=== PATIENT | female | born 1955 | race Caucasian/White ===

== ENCOUNTER 2019-12-31 09:08 | Emergency (ER) | payer MEDICARE, SELFPAY ==
--- NOTE | 2019-12-31 09:16 | ED.GENADULT ---
HPI - General Adult General Chief complaint: Wound/Laceration Stated complaint: laceration Time Seen by Provider: 12/31/19 09:16 Source: patient Mode of arrival: ambulatory Limitations: no limitations History of Present Illness HPI narrative: 64-year-old female patient presents to the [facility] with complaints of a laceration to her left index finger that occurred yesterday. Patient states that she cut it on an old umbrella. Patient states that she knew that her tetanus was outdated so wanted to come today for tetanus shot. Patient denies any history of diabetes. Patient states that she cleaned it out really good yesterday and has been washing it with soap and water. Related Data Home Medications Medication Instructions Recorded Confirmed losartan 25 mg PO DAILY 12/31/19 12/31/19 metformin [Glucophage] 500 mg PO BID 12/31/19 12/31/19 propranolol 40 mg PO BID 12/31/19 12/31/19 simvastatin [Zocor] 10 mg PO DAILY 12/31/19 12/31/19 verapamil 100 mg PO DAILY 12/31/19 12/31/19 Allergies Allergy/AdvReac Type Severity Reaction Status Date / Time nickel Allergy Unknown Unknown Verified 04/29/19 09:34 Review of Systems Review of Systems: Narrative: CONSTITUTIONAL: Denies fever, chills, or sweats. EYES: Denies visual changes, redness, or discharge. ENT: Denies rhinorrhea, congestion, sore throat, or otalgia. CARDIOVASCULAR: Denies chest pain, palpitations, or edema. RESPIRATORY: Denies cough or dyspnea. GASTROINTESTINAL: Denies abdominal pain, nausea, vomiting, or diarrhea. GENITOURINARY: Denies dysuria or hematuria. SKIN: Denies rash or itching. Positive laceration to left index finger MUSCULOSKELETAL: Denies back pain, joint pain, or myalgia. NEUROLOGIC: Denies headache, numbness, or weakness. PSYCHIATRIC: Denies anxiety or depression. [facility] Past Medical History Medical History Diabetes HLD (hyperlipidemia) Hypercholesterolemia Hypertension Family History Family History Mother Hypertension Family history of Alzheimer's disease Social History Social History (Reviewed 12/31/19 @ 09:18 by BJ Ayers Smoking status: Former smoker Smoking end date: 06/03/04 Alcohol intake: never Gender identity (if verbalized by the patient): Female Comments At the time of my signature I agree with nursing past medical history, surgical, social, and family history. There is no relevant family history pertinent to the presenting complaint. Exam Narrative: Exam Narrative: GENERAL: Well-appearing, well-nourished, and in no acute distress. HEAD: Normocephalic, atraumatic. EYES: PERRLA and EOMI. ENT: Nares clear, no rhinorrhea or epistaxis. Mucous membranes moist. NECK: Supple. No lymphadenopathy CHEST: Clear to auscultation. No respiratory distress. HEART: Regular rate and rhythm. No murmur heard. Normal peripheral pulses. ABDOMEN: Soft, nontender, nondistended, normal active bowel sounds. EXTREMITIES: Normal range of motion. No edema. SKIN: Warm, dry, no rash. Patient has approximately 2.5 cm linear laceration between the PIP and MIP joint on the dorsal side of the left index finger. No active bleeding noted. The cut is pretty superficial. Patient has excellent range of motion and good sensation to the tip of the finger with good cap refill. NEURO: No focal deficits. Alert and oriented x3. Course Vital Signs Vital signs: Vital Signs Temperature 36.9 C 12/31/19 09:22 Pulse Rate 68 12/31/19 09:22 Respiratory Rate 18 12/31/19 09:22 Blood Pressure 142/65 H 12/31/19 09:22 Pulse Oximetry 99 12/31/19 09:22 Temperature 36.9 C 12/31/19 09:22 Pulse Rate 68 12/31/19 09:22 Respiratory Rate 18 12/31/19 09:22 Blood Pressure 142/65 H 12/31/19 09:22 Pulse Oximetry 99 12/31/19 09:22 Vital signs reviewed. The patient has been informed that they may have pre-hypertension or
[2019-12-31 09:22] VITALS: BP 142/65; PULSE 68; RESP 18; TEMP 36.9; O2SAT 99
[2019-12-31] MEDS: TETANUS,DIPHTHERIA,AC PERTUSSIS ADULT (0.5 ML) BOOSTRIX IM (09:39)
== END 2019-12-31 09:54 | disposition home or self-care (01) ==
PROVIDERS: Emergency Provider Nurse Practitioner Family; PCP Emergency Medicine
DX: S61.211A Laceration without foreign body of left index finger without damage to nail, initial encounter (principal); W26.8XXA Contact with other sharp object(s), not elsewhere classified, initial encounter; Z23 Encounter for immunization; Z87.891 Personal history of nicotine dependence; E11.9 Type 2 diabetes mellitus without complications; E78.5 Hyperlipidemia, unspecified; E78.00 Pure hypercholesterolemia, unspecified; I10 Essential (primary) hypertension
CPT/HCPCS: 90471; 90715; 99212; G0463

== ENCOUNTER → 2020-03-08 13:38 | Outpatient (CLI) | payer MEDICARE, SELFPAY ==
--- NOTE | ~2020-03-08 | XR_ITS ---
XR foot LT 2V DATE: 03/08/2020 13:47 INDICATION: Left foot pain TECHNIQUE: AP and lateral views COMPARISON: None FINDINGS: Slight plantar calcaneal enthesopathy. There is mild osteophyte is at the first metatarsophalangeal joint. No fracture, dislocation, periosteal reaction or bone destruction is detected. IMPRESSION: Slight plantar calcaneal enthesopathy Mild osteoarthritis at first metatarsophalangeal joint Reviewed, dictated and finalized at location A.
== END ==
PROVIDERS: PCP Emergency Medicine; Visit Provider Emergency Medicine
DX: M19.072 Primary osteoarthritis, left ankle and foot (principal); M77.32 Calcaneal spur, left foot
CPT/HCPCS: 73620

== ENCOUNTER → 2020-08-04 18:04 | Outpatient (CLI) | payer MEDICARE, SELFPAY ==
--- NOTE | ~2020-08-04 | MR_ITS ---
EXAMINATION: MR foot LT wo con DATE: 08/04/2020 19:07 INDICATION: Spontaneous rupture of an unspecified left foot tendon presenting with left foot pain. TECHNIQUE: Magnetic resonance imaging (MRI) of the left fore/mid foot was performed without intraveno us contrast. Sequences included sagittal T1-weighted FSE, sagittal fluid sensitive FSE STIR, coronal PD-weighted FS FSE, coronal T1-weighted FSE, axial PD-weighted FS FSE, and axial PD-weighted FSE. COMPARISON: Left foot radiographs dated 08/02/2020 FINDINGS: Bone alignment is normal. No fracture or pathologic marrow replacing process. There is polyarticular osteoarthritis mild to moderate at the first tarsal metatarsal joint and mild at the first metatarsop halangeal and remaining tarsal metatarsal joints. There is a small focus of subarticular cystic nina e and mild surrounding edema at the base of the first metatarsal. Minimal tibialis anterior tendinopa thy with longitudinal split tear extending along the distal 3-4 cm of the tendon. The remainder of th e visualized portions of the flexor and extensor tendons are normal. The Lisfranc ligament complex al diallo with the collateral ligament complex at the metatarsophalangeal and interphalangeal joints are no rmal. Intrinsic musculature is unremarkable. Mild subcutaneous edema in the at the dorsal/medial aspe ct of the midfoot underlying the marker indicating the region of concern more posteriorly at both med ial and lateral aspects of the hindfoot. Physiologic amount fluid in the joint spaces. No bursitis, t enosynovitis or other abnormal fluid collections. IMPRESSION: 1. Minimal tibialis anterior tendinopathy with longitudinal split tear at the distal tendon. 2. Mild to moderate osteoarthritis at the first tarsal metatarsal joint with high-grade chondral reymundo mike and underlying subarticular cystic change at the base of the first metatarsal. Mild osteoarthriti s at the first metatarsophalangeal and remaining tarsal metatarsal joints. Reviewed, dictated and finalized at location B. 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 Minimal tibialis anterior tendinopathy with longitudinal split tear at the d istal tendon. 2. Mild to moderate osteoarthritis at the first tarsal metatarsal joint with hi gh-grade chondral malacia and underlying subarticular cystic change at the base of the first metatarsal. Mild osteoarthritis at the first metatarsophalangeal and remaining tarsal metatarsal joints.
== END ==
PROVIDERS: Visit Provider Orthopaedic Surgery
DX: M66.869 Spontaneous rupture of other tendons, unspecified lower leg (principal); M19.072 Primary osteoarthritis, left ankle and foot
CPT/HCPCS: 73718

== ENCOUNTER → 2021-08-07 14:27 | Outpatient (CLI) | payer MEDICARE, SELFPAY ==
--- NOTE | ~2021-08-07 | XR_ITS ---
EXAMINATION: XR hip RT 2V w AP pelvis DATE: 08/07/2021 15:01 INDICATION: Right hip pain TECHNIQUE: Anteroposterior view of the pelvis and anteroposterior and frog-leg lateral views of the r ight hip were obtained. COMPARISON: 05/05/2019 FINDINGS: Alignment is normal. No fracture or suspected avascular necrosis. Mild bilateral hip and sacroiliac o steoarthritis. Mild lumbar spondylosis. IMPRESSION: 1. Mild osteoarthritis at the bilateral hip and sacroiliac joints. Reviewed, dictated and finalized at location A. NICAL INTERNSHIP
--- NOTE | ~2021-08-07 | XR_ITS ---
EXAMINATION: XR_CERV2-3V_CR EXAM DATE: 08/07/2021 15:01 INDICATION: No known recent injury provided at this time. Pain of the cervical spine. TECHNIQUE: Cervical spine frontal, lateral, lateral swimmers, and open-mouth odontoid projections. There is no prior study for comparison. FINDINGS: There is moderate disc disease C5-6 and 6-7, mild at the 2 levels above. There is moderate cervical arthropathy. Lung apices unremarkable. The vertebral bodies are aligned in the AP dimension . Prevertebral soft tissue and pre-dens space are within normal limits. The odontoid process is intac t. The lateral masses of C1 line up with C2. IMPRESSION: 1. Moderate cervical spondylosis. Reviewed, dictated and finalized at location A. 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
== END ==
PROVIDERS: PCP Emergency Medicine; Visit Provider Emergency Medicine
DX: M16.11 Unilateral primary osteoarthritis, right hip (principal); M47.892 Other spondylosis, cervical region
CPT/HCPCS: 72040; 73502

== ENCOUNTER → 2021-08-10 12:08 | Outpatient (CLI) | payer MEDICARE, SELFPAY ==
--- NOTE | ~2021-08-10 | MR_ITS ---
EXAMINATION: MR lumbar spine wo con DATE: 08/10/2021 12:43 INDICATION: Dorsalgia, unspecified. Right-sided low back pain. TECHNIQUE: Magnetic resonance imaging (MRI) of the lumbar spine was performed without intravenous con trast. Sequences included sagittal T2-weighted FSE, sagittal T2-weighted FS FSE, sagittal T1-weighted FSE, and axial T2-weighted FSE. COMPARISON: Lumbar spine radiographs 05/05/2019 FINDINGS: There is a 2.4 cm cyst in left kidney. There is 3 mm anterolisthesis of L3 on L4. Vertebral body heights are normal. There is moderately decreased disc height at L3-L4. The distal spinal cord signal intensity is normal. The conus medullaris is at T12-L1. The following disc levels are specific ally discussed: L1-L2: The disc does not extend beyond the endplate margin. There is mild bilateral facet joint osteo arthritis. There is no neural foraminal stenosis. There is no central canal stenosis. L2-L3: The disc does not extend beyond the endplate margin. There is mild bilateral facet joint osteo arthritis. There is no neural foraminal stenosis. There is no central canal stenosis. L3-L4: The disc is bulging with superimposed left central extrusion. There is severe bilateral facet joint osteoarthritis. There is mild bilateral neural foraminal stenosis. There is mild central canal stenosis. L4-L5: The disc is bulging and has an annular fissure. There is severe bilateral facet joint osteoart hritis. There is mild bilateral neural foraminal stenosis. There is mild central canal stenosis. L5-S1: There is a central protrusion. There is mild right and severe left facet joint osteoarthritis. There is mild bilateral neural foraminal stenosis. There is mild central canal stenosis. IMPRESSION: 1. Moderate lumbar spondylosis. Reviewed, dictated and finalized at location A. RVISOR ROUGH END
== END ==
PROVIDERS: PCP Emergency Medicine; Visit Provider Emergency Medicine
DX: M47.896 Other spondylosis, lumbar region (principal)
CPT/HCPCS: 72148

== ENCOUNTER 2021-09-29 16:00 | Outpatient (RCR) | payer MEDICARE, SELFPAY ==
--- NOTE | 2021-08-22 16:35 | PTOPEVAL ---
Thank you for referring Ce Cuellar to [facility].? The patient is scheduled to be seen for therapy?2 x/week for 5 weeks. Please review, sign, date and return this plan of care LORENA. I agree with and certify that the following plan of care is medically necessary. Referring Physician Date Attending Provider: Bony King MD Problem Diagnosis low back pain Onset 08/01/21 Additional Evaluation Detail She slid down the steps 30 yrs ago. She has back pain on/off for the past 10 yrs. She works the [employer]. 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 Subjective Information She plays golf and walk on a Query Text:As Reported By Patient/ TM, but not consistently. She Family will perform stretches when she has increased pain. 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 Increased pain with pressure on right side in bed Improved symptoms with walking program. Diagnostic Tests MRI For This Problem Yes Previous Treatments Previous Treatments For This Problem 4 yrs Pain Assessment Self Report Pain Assessment Lower Back Reported Pain Level 2 Pain Frequency Chronic Greatest Pain Intensity 10 Pain Aggravating Factors Bending,Exercise/Activity, Lifting,Sitting,Weight Bearing /Standing Cervical and Lumbar ROM Lumbar ROM Lumbar Flexion Active Ankle:Hands to: Lateral Flexion lateral knee joint lineActive Hands to: Lumbar Comments 100% trunk ext and lateral flex 90% trunk flex pulling vs pain with trunk motion Lower Extremity Range of Motion General Lower Extremity Range of Motion Reason Not Measured WFL/Left,WFL/Right Cervical and Lumbar Muscle Testing Lumbar Strength Upper Abdominal Strength 4-Good- Lower Abdominal Strength 3-Fair- Upper Back Extension 3 Fair Lower Back Extension 3 Fair Lower Extremity Muscle Strength Testing General Lower Extremity Strength Reason Not Measured WFL/Left,WFL/Right Gross Lower Extremity Strength chin hip abd: 3+/5 Muscle Length Testing Muscle Length Testing Two-Joint Hip Flexor Shortened Muscles Short (R) Iliopsoas,Short (L)
--- NOTE | 2021-09-29 17:04 | PTOPEVAL ---
Physical Therapy Progress Note Thank you for referring Ce Cuellar to [facility].? Pt referred to therapy due to chronic low back pain with acute flare-up of symptoms. She has been seen for 11 visits from 08/22/21 to 09/29/21. She did report improved symptoms until this week her symptoms and pain increased. She reports improved tolerance with standing and daily task. But cont pain sleeping on right side or palpation to right buttock region. Improved trunk motion and LE muscle restriction, but cont tightness of hip flex and hip rotation muscles. Ce is progressing slowly towards her therapy goals. Limited progress towards improved trunk and hip abduction strength and soft tissue restriction. Signs and symptoms consistent with pelvic rotation with tendonitis and bursitis. She requires the additional skilled therapy to address her remaining limitations, improve her pain and function and to achieve her therapy goals to allow her to return to normal daily and recreational activities. The patient is scheduled to be seen for therapy? 1x/week for 4 weeks. Please review, sign, date and return this plan of care LORENA. I agree with and certify that the following plan of care is medically necessary. Referring Physician Date Attending Provider: Bony King MD Diagnosis low back pain Onset 08/01/21 Additional Evaluation Detail She slid down the steps 30 yrs ago. She has back pain on/off for the past 10 yrs. 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 Subjective Information She feels the pain is more in Query Text:As Reported By Patient/ her hip vs back region. She Family reports increased pain since Tue for unknonw reason. Notes pain to be in right buttock region. The pain is greater in the evening and at night. Improved tolerance with lifting and carrying task. Improved tolerance with prolong standing to ~ an hour before needing a rest. She is performing exercises daily. Pain Assessment Self Report Pain Assessment Lower Back Reported Pain Level 1 Pain Description Tender on Palpation,Tightness Pain Frequency Chronic Lowest Pain Intensity 1 Greatest Pain Intensity 10 Pain Aggravating Factors Bending,Exercise/Activity, Prolonged Position,Sitting, Supine,Weight Bearing/Standing Cervical and Lumbar ROM Lumbar ROM Lumbar Flexion Active Floor:Hands to: Lateral Flexion
--- NOTE | 2021-10-05 14:52 | PCPTNOTE ---
Patient called & cancelled scheduled appointment this date due to having another appointment.
--- NOTE | 2021-10-10 11:42 | PCPTNOTE ---
Patient called & cancelled scheduled appointment this date due to going to see MD and will inform therapy if she should continue.
--- NOTE | 2021-10-23 14:26 | PCPTNOTE ---
PHYSICAL THERAPY DISCHARGE NOT E Attending Provider: Bony King MD Patient:Ce Cuellar Date of :1955 Ce was participating in physical therapy for low back pain. Her last attended appointment was 09/29/21 and a progress report was sent to MD after that appointment. She has since cancelled her final appointment for physical therapy on 10/24/21 stating she is going to see an orthopedic doctor. She will be discharged at this time. Patient?s initial visit was on 08/22/2021 15:30 and had a total of 11 visits. Thank you for referring this patient to [facility]. Please review, sign, date and return this discharge summary LORENA. I have been updated about the patient's current status and I agree with discharge from the above service at this time. Referring Physician Date
== END 2021-10-23 15:08 | disposition home or self-care (01) ==
LOC: ANHPT 16:00
PROVIDERS: PCP Emergency Medicine; Visit Provider Emergency Medicine
DX: M47.816 Spondylosis without myelopathy or radiculopathy, lumbar region (principal); M48.061 Spinal stenosis, lumbar region without neurogenic claudication
CPT/HCPCS: 97014; 97110; 97112; 97140; 97161; 97530; G0283

== ENCOUNTER → 2021-10-03 16:05 | Outpatient (CLI) | payer MEDICARE, SELFPAY ==
--- NOTE | ~2021-10-03 | MR_ITS ---
EXAMINATION: MR hip RT wo con DATE: 10/03/2021 17:15 INDICATION: Right hip pain TECHNIQUE: Magnetic resonance imaging (MRI) of the right hip was performed without intravenous contr ast. Sequences included full-field axial PD-weighted FS FSE and T1-weighted FSE, coronal of the pelvi s with PD-weighted FS FSE, T2-weighted FS FSE and T1-weighted FSE, small field of view of the right hip with axial PD-weighted FS FSE, sagittal PD-weighted FS FSE, coronal T2-weighted FS FSE and rebolledo l PD weighted FS FSE. Additional radial T1-weighted FGR oriented orthogonal to the acetabular rim wer e obtained for evaluation of the labrum. COMPARISON: None FINDINGS: Bones/labrum/cartilage: Alignment is normal. No fracture, avascular necrosis or pathologic marrow replacing process. There i s a tear at the anterosuperior glenoid labrum. Mild right hip osteoarthritis with small marginal oste ophytes about the right femoral head and superolateral rim of the acetabulum but with relatively pres erved articular cartilage and joint space. Similar findings suggested at the left hip but not diagnos tically evaluated on the larger field of view images. Mild lumbar spondylosis. Fluid: Symmetric physiologic amount of fluid within both hip joints. Mild increased fluid signal overlying t he bilateral greater trochanters consistent with mild bilateral trochanteric bursitis. Soft tissues: Normal and symmetric muscle bulk and signal in the pelvis and visualized proximal thighs. The iliopso as, gluteal and proximal hamstring tendons are normal. Limited evaluation of visceral organs of the p parker is unremarkable. No pathologically enlarged pelvic/inguinal lymphadenopathy. IMPRESSION: 1. Very mild right hip osteoarthritis with tear of the anterosuperior right acetabular labrum. 2. Relatively symmetric mild bilateral greater trochanteric bursitis. Reviewed, dictated and finalized at location A. IMPRESSION: 1. Very mild right hip osteoarthritis with tear of the anterosuperior right virgie tabular labrum. 2. Relatively symmetric mild bilateral greater trochanteric bursitis.
== END ==
PROVIDERS: PCP Emergency Medicine; Visit Provider Emergency Medicine
DX: M25.551 Pain in right hip (principal); M16.0 Bilateral primary osteoarthritis of hip; M47.816 Spondylosis without myelopathy or radiculopathy, lumbar region; M54.31 Sciatica, right side; S73.191A Other sprain of right hip, initial encounter; M71.552 Other bursitis, not elsewhere classified, left hip; M71.551 Other bursitis, not elsewhere classified, right hip
CPT/HCPCS: 73721

== ENCOUNTER → 2023-04-19 10:12 | Outpatient (CLI) | payer MEDICARE, SELFPAY ==
--- NOTE | ~2023-04-19 | XR_ITS ---
Cervical Spine: AP, lateral, open-mouth views Clinical History: Pain COMPARISON: 08/07/2021 Findings: The normal lordotic curve is maintained. Stable minimal grade 1 retrolisthesis of C3 over C 4. Mild degenerative disc change and mild facet arthropathy is stable from prior exam. Pre-vertebral soft tissues are unremarkable. Impression: Stable mild degenerative spondylosis. Stable minimal grade 1 retrolisthesis of C3 over C4. Reviewed, dictated and finalized at location . 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 Stable minimal grade 1 retrolisthesis of C3 over C4.
== END ==
PROVIDERS: PCP Emergency Medicine; Visit Provider Emergency Medicine
DX: M47.892 Other spondylosis, cervical region (principal)
CPT/HCPCS: 72040

== ENCOUNTER 2023-06-12 14:30 | Outpatient (RCR) | payer MEDICARE, SELFPAY ==
--- NOTE | 2023-05-14 15:12 | OPREHPOC ---
Outpatient Therapy Plan of Care This is a Multidisciplinary Plan of Care that may contain components documented by all disciplines (PT, OT, and ST.) PT Problem 1 PT Problem #1 Knowledge Deficit PT Goal 1 Goal 1* indep with HEP 2* correct posture with exercises PT Problem 2 PT Problem #2 Pain PT Goal 1 Goal 1* pt report pain at worst rating of 7/10 2* pt report times of NO pain neck/head 3* with palpation over R and L cervical paraspinals, minimal spasms PT Problem 3 PT Problem #3 Impaired Flexibility PT Goal 1 Goal improve cervical ROM to increase flexibility of muscles and spinal mobility: sitting active cervical rotation 1* R 40' 2* L 40' no pain increase with 3 reps of cervical rotation 3* R 4* L PT Problem 4 PT Problem #4 Impaired Strength PT Goal 1 Goal improve cervical-thoracic strength, to improve position of spine 1* pt stand with correct shoulder and neck posture during session 2* pt perform 20 reps of standing green theraband exercises
--- NOTE | 2023-05-14 15:12 | PTOPEVAL1 ---
Assessment and note entered by Layla Murillo, PT Evaluation Information Assessment Status Evaluation Diagnosis cervicalgia Onset Mar 2023 Subjective Information chronic issues with neck pain, few months ago had more pain in the back of her head and constant; L shoulder pain/injury when heavy item caught with L arm~ 6 months ago, now is normal/no longer painful shoulder; Self assessment Neck Disability Index score of 4%- -have pain, but it does not limit her activity level--doing all home, work and self care tasks. 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 She reports chronic issues with neck pain but increased over the past few months. She did injure her L shoulder and had shoulder pain. History includes low back pain, diabetes and HTN. She is active and is able to perform all her home and work tasks, but have more pain with them. She has a home stim unit that she uses for her back- instruct to use on her neck. With the evaluation, she has decreased cervical rotation to R and L, with pain increase L cervical ; moderate spasms and pain - most over upper cervical and L upper traps; Skilled PT services are indicated for modalities to decrease pain; therapeutic exercises to stretch cervical musculature, education for home exer Plan of Care Interventions Hot Pack/Cold Pack,Manual Therapy,Mechanical Traction,Patient Education,Therapeutic Activities,Therapeutic Exercise,Ultrasound,Other Other Interventions TANA means PT Services Indicated Yes
--- NOTE | 2023-06-12 15:20 | PTOPDC ---
Assessment and note entered by Layla Murillo, PT Evaluation Information Assessment Status Discharge Diagnosis cervicalgia Onset Mar 2023 Subjective Information am doing better, can turn head to L with driving to look for cars; am doing all the exercises at home; Reported Pain Level Pain Score Self Report Additional Pain Score Comments pain range of neck in past week 0-3/10; still have pain in the back of her head--numb, tingling,cramp pain, hurts to touch, ease with aleve; decrease pain: stretching, position correction good work station set up with computer; Assessment PT Clinical Summary Ce has received 9 PT sessions. Compared to the initial evaluation: she has improved in all areas: decreased neck pain from 3-10 to 0-3/10; continues to have pain at posterior aspect of head; increase cervical rotation ROM to R and L; cervical active motions do not increase pain; increase strength of [id number] complex; education completed for home exercise program and work station set up. The goals were achieved. Discharge PT Services. She is to continue with her home exercises and monitoring her posture. Plan of Care PT Services Indicated No
== END 2023-06-12 15:28 | disposition home or self-care (01) ==
LOC: ANHPT 14:30
PROVIDERS: PCP Emergency Medicine; Visit Provider Emergency Medicine
DX: M50.30 Other cervical disc degeneration, unspecified cervical region (principal)
CPT/HCPCS: 97012; 97110; 97140; 97161; 97530

== ENCOUNTER → 2023-08-01 15:05 | Outpatient (CLI) | payer MEDICARE, SELFPAY ==
--- NOTE | ~2023-08-01 | MM_ITS ---
EXAMINATION: MM screening wilmer BI w bianca HISTORY: Screening TECHNIQUE: Craniocaudal and mediolateral oblique 3-D tomosynthesis images were obtained and synthetic 2-D images were generated. CAD analysis was submitted and interpreted. COMPARISON: No prior mammogram is available for comparison at this institution. BREAST PARENCHYMAL COMPOSITION: Not dense: There are scattered areas of fibroglandular density. FINDINGS: There is no evidence of suspicious mass, calcification, or architectural distortion to sugg est malignancy in either breast. There has been no suspicious interval change. IMPRESSION: 1. No mammographic evidence of malignancy. 2. Recommend routine screening mammography in one year. 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
== END ==
PROVIDERS: PCP Emergency Medicine; Visit Provider Emergency Medicine
DX: Z12.31 Encounter for screening mammogram for malignant neoplasm of breast (principal)
CPT/HCPCS: 77063; 77067

== ENCOUNTER 2023-11-02 08:14 | Outpatient (CLI) | payer MEDICARE, SELFPAY ==
--- NOTE | ~2023-11-02 | MR_ITS ---
EXAMINATION: MR cervical spine wo con DATE: 11/02/2023 09:05 INDICATION: Neck pain. TECHNIQUE: Magnetic resonance imaging (MRI) of the cervical spine was performed without intravenous c ontrast. COMPARISON: None FINDINGS: There is 2 mm anterolisthesis of C7 on T1. Vertebral body heights are normal. There is mode rately decreased disc height at C3-C4, mildly decreased disc height at C4-C5, moderately decreased di sc height at C5-C6 and C6-C7, and mildly decreased disc height at C7-T1. The spinal cord signal inten sity is normal. The following disc levels are specifically discussed: C2-C3: The disc does not extend beyond the endplate margin. There is no uncovertebral joint osteoarth ritis. There is severe bilateral facet joint osteoarthritis. There is mild bilateral neural foraminal stenosis. There is no central canal stenosis. C3-C4: The disc is bulging. There is moderate right and severe left uncovertebral joint osteoarthriti s. There is mild right and severe left facet joint osteoarthritis. There is mild right and severe lef t neural foraminal stenosis. There is mild central canal stenosis. C4-C5: The disc is bulging. There is severe bilateral uncovertebral joint osteoarthritis. There is mi ld right and severe left facet joint osteoarthritis. There is mild right and moderate left neural for aminal stenosis. There is mild central canal stenosis. C5-C6: The disc is bulging. There is severe right and moderate left uncovertebral joint osteoarthriti s. There is moderate bilateral facet joint osteoarthritis. There is moderate right and mild left neur al foraminal stenosis. There is mild central canal stenosis. C6-C7: The disc is bulging. There is severe bilateral uncovertebral joint osteoarthritis. There is mi ld bilateral facet joint osteoarthritis. There is mild bilateral neural foraminal stenosis. There is mild central canal stenosis. C7-T1: There is a central extrusion. There is moderate bilateral uncovertebral joint osteoarthritis. There is severe bilateral facet joint osteoarthritis. There is mild bilateral neural foraminal stenos is. There is mild central canal stenosis. IMPRESSION: 1. Moderate cervical spondylosis. Reviewed, dictated and finalized at location E.
== END 2023-11-02 08:15 ==
LOC: MICIMG 08:15
PROVIDERS: PCP Emergency Medicine; Visit Provider Emergency Medicine
DX: M54.2 Cervicalgia (principal); M43.02 Spondylolysis, cervical region
CPT/HCPCS: 72141

== ENCOUNTER 2023-12-30 09:00 | Emergency (ER) | payer MEDICARE, SELFPAY ==
--- NOTE | ~2023-12-30 | XR_ITS ---
EXAMINATION: XR finger 2nd LT min 2V DATE: 12/30/2023 09:26 INDICATION: Left hand second digit injury. TECHNIQUE: 3 views of left hand second digit were obtained. COMPARISON: None. FINDINGS: Bone alignment is normal. No fracture. There is severe osteoarthritis of triscaphe joint, m oderate osteoarthritis of first carpometacarpal joint, and mild osteoarthritis of second metacarpopha langeal joint and second distal interphalangeal joint. IMPRESSION: 1. Polyarticular osteoarthritis. Reviewed, dictated and finalized at location A.
[2023-12-30 09:11] VITALS: BP 141/66; PULSE 62; RESP 16; TEMP 36.6; O2SAT 99
--- NOTE | 2023-12-30 09:28 | ED.UPPEXIN ---
HPI - Extremity Injury (Upper) General Chief Complaint: Extremity Injury, Upper Stated Complaint: Left Hand Finger Pain Time Seen by Provider: 12/30/23 09:35 Source: patient and RN notes reviewed Mode of arrival: ambulatory Limitations: no limitations History of Present Illness HPI narrative: 5-year-old female presents with concern for pain to the 2nd digit of left hand with swelling. Reports yesterday she fell while carrying a bucket and her hand started hurting after that. She denies other injury from that fall. She reports she used ice last night. She denies decreased strength. Reports slightly decreased range of motion with flexion MD complaint: injury to: left and finger Related Data Home Medications Medication Instructions Recorded Confirmed aspirin 81 mg chewable tablet 81 mg PO DAILY 07/11/20 12/30/23 cholecalciferol (vitamin D3) 25 1,000 unit PO DAILY 07/11/20 12/30/23 mcg (1,000 unit) capsule cyanocobalamin (vitamin B-12) 1,000 mcg PO DAILY 07/11/20 12/30/23 1,000 mcg tablet psyllium husk 0.4 gram capsule 0.4 g PO BID 10/21/23 12/30/23 (Metamucil) Allergies Allergy/AdvReac Type Severity Reaction Status Date / Time nickel Allergy Unknown Unknown Verified 12/30/23 09:11 Review of Systems Review of Systems: CONSTITUTIONAL: Denies malaise, chills, sweats, or fever. SKIN: Denies rash or itching, open skin, laceration, abrasion, redness, warmth MUSCULOSKELETAL: Reports left finger pain and swelling NEUROLOGIC: Denies numbness, weakness All systems reviewed & are unremarkable except as noted in HPI and below PMFSH Past Medical History Medical History Abnormality of heart beat Arrhythmia Arthritis of right hip Body mass index [BMI] 31.0-31.9, adult (01/02/16) Body mass index [BMI] 32.0-32.9, adult (08/28/16) Body mass index [BMI] 33.0-33.9, adult (09/02/17) Body mass index [BMI] 34.0-34.9, adult (07/06/17) Diabetes Enlarged lymph nodes High cholesterol HLD (hyperlipidemia) Hypercholesterolemia Hypertension Other viral agents as the cause of diseases classified elsewhere Palpitations with regular cardiac rhythm Psoriasis Sciatica, right side Tibialis anterior tendon tear, nontraumatic Trochanteric bursitis, right hip Viral sinusitis Vitamin deficiency, unspecified Surgical History Surgical History History of breast surgery Right breast benign mass History of oophorectomy, unilateral Right History of ovarian cystectomy Family History Family History Mother Hypertension Family history of Alzheimer's disease Other High cholesterol Social History Social History (Updated 10/21/23 @ 15:50 by Irene George MA) Smoking packs per day: 0.5 Smoking cigarettes per day: 10.0 Years smoked: 20 Smoking pack-years: 10.00 Smoking status: Former smoker Smoking end date: 06/03/04 Alcohol intake: never Drinks per week: 7 Substance use: never Do You Feel Safe in your Home?: Yes Lack of Transportation: No Lack of Food: Never True Current Housing: I Have Housing Concerned About Future Housing: No Difficulty Paying Gas/Electric Bills: No Difficulty Paying for Meds: No Currently Unemployed: No Education: Associate Degree Difficulty w/ Childcare or Family Care: No Gender identity (if verbalized by the patient): Female Comments At time of signature, agree with nursing past medical, surgical, social and family history. There is no relevant family history pertinent to the presenting complaint Exam Narrative: GENERAL: Well-appearing, well-nourished, and in no acute distress. HEAD: Normocephalic EYES: PERRLA, conjunctivae clear NECK: Supple. CHEST: Speaks in full sentences. No respiratory distress. HEART: Regular rate and rhythm. Normal and equal peripheral pulses.
== END 2023-12-30 09:45 | disposition home or self-care (01) ==
PROVIDERS: Emergency Provider Nurse Practitioner; PCP Emergency Medicine
DX: S63.611A Unspecified sprain of left index finger, initial encounter (principal); W19.XXXA Unspecified fall, initial encounter; E11.9 Type 2 diabetes mellitus without complications; E78.5 Hyperlipidemia, unspecified; E78.00 Pure hypercholesterolemia, unspecified; I10 Essential (primary) hypertension; M16.11 Unilateral primary osteoarthritis, right hip; Z87.891 Personal history of nicotine dependence
CPT/HCPCS: 29130; 73140; 99213; G0463

== ENCOUNTER 2025-05-17 13:20 | Outpatient (CLI) | payer MEDICARE, SELFPAY ==
--- NOTE | ~2025-05-17 | MM_ITS ---
EXAMINATION: screening [facility] BI w bianca INDICATION: Asymptomatic, referred for screening mammogram COMPARISON: 08/01/2023 TECHNIQUE: Digital Breast Tomosynthesis CC, MLO views of Both breasts were obtained with computer-aided detection to assist in interpretation of the study. FINDINGS: There are scattered areas of fibroglandular density. There is an asymmetry seen on the MLO view in the Superior right breast at posterior third. Elsewhere, there are no mammographic features of malignancy. IMPRESSION: 1. Right breast Asymmetry. 2. No evidence of malignancy in the Left breast. RECOMMENDATION: Right breast Diagnostic mammogram with true lateral, appropriate spot compression views and an ultrasound if needed. BI-RADS Category 0: Incomplete: Needs additional imaging evaluation. Reviewed, dictated and finalized at location A. [employer]OPL[employer] HELPER IMPRESSION: 1. Right breast Asymmetry. 2. No evidence of malignancy in the Left breast. RECOMMENDATION: Right breast Diagnostic mammogram with true lateral, appropriate spot compressi on views and an ultrasound if needed. BI-RADS Category 0: Incomplete: Needs additional imaging evaluation.
--- NOTE | ~2025-05-17 | DEXA_ITS ---
Bone Density Report Name: BERNABE GONZALES Age: 69 Sex: Female Ethnicity: White Date of : 1955 Indication: postmenopausal; screening for osteoporosis; height loss; Referring Provider: NALLELY MCKENNA Study: Bone densitometry was performed. Exam Date: May 17, 2025 Accession number: [id number] Bone Density: Region BMD T-score Z-score Classification AP Spine(L1-L4) 0.888 -1.4 0.8 Osteopenia Femoral Neck (Left) 0.734 -1.0 0.9 Normal Total Hip (Left) 0.879 -0.5 1.1 Normal Femoral Neck (Right) 0.761 -0.8 1.1 Normal Total Hip (Right) 0.967 0.2 1.8 Normal Total Hip Mean 0.923 -0.2 1.5 Normal World Health Organization criteria for BMD impression classify patients as: Normal (T-score at or above -1.0), Osteopenia (T-score between -1.0 and -2.5), or Osteoporosis (T-score at or below -2.5). 10-year Fracture Risk(1): Major Osteoporotic Fracture 8.5% Hip Fracture 0.9% Reported Risk Factors: [place] (), Neck BMD=0.734, BMI=35.7 (1) FRAX(R) Version 3.08. Fracture probability calculated for an untreated patient. Fracture probability may be lower if the patient has received treatment. Clinical Information Provided by Patient: Has used the following medications: Vitamin D, Calcium Patient maximum height was 65.5 Menopause Age: 50 Onset of menses at age 10 Number of children 0 Impression: The patient has low bone mass, based on the Total Spine T-score. The patient has an estimated ten-year risk of hip fracture of 0.9% and an estimated ten-year risk of major fracture of 8.5%, based on the WHO FRAX algorithm. Discussion: BONE DENSITY IS LOW AT ONE OR MORE SKELETAL SITES. This patient's lowest T-score is low at one or more skeletal sites. It meets the World Health Organization's (WHO) criteria for ?low bone mass? (T-score between -1.0 and -2.5). The patient's 10-year risk of fracture as calculated by FRAX is less than the threshold where pharmacological therapy is recommended by the National Osteoporosis Foundation (NOF). However, all treatment decisions require clinical judgment and consideration of individual patient factors, including patient preferences, comorbidities, previous drug use, risk factors not captured in the FRAX model (e.g., frailty, falls, vitamin D deficiency, increased bone turnover, interval significant decline in bone density) and possible under or overestimation of fracture risk by FRAX. The patient should follow a healthful lifestyle (good nutrition with adequate calcium and vitamin D, and appropriate weight-bearing exercise). Follow-Up: Consider repeating this study in 2 to 3 years to reassess this patient's status, or sooner if there is some new clinical indication. Reported by: SARAH on 05/17/2025 1:37:00 PM. Reviewed, dictated and finalized at location A.
== END 2025-05-17 13:21 | disposition home or self-care (01) ==
LOC: MICIMG 13:22
PROVIDERS: PCP Emergency Medicine; Visit Provider Emergency Medicine
DX: Z12.31 Encounter for screening mammogram for malignant neoplasm of breast (principal); Z78.0 Asymptomatic menopausal state; M85.88 Other specified disorders of bone density and structure, other site
CPT/HCPCS: 77063; 77067; 77080